=== PATIENT | female | born 1975 | race Hispanic/Latino ===

== ENCOUNTER 2018-09-07 08:11 | Emergency (ER) | payer SELFPAY ==
[~2018-09-07] VITALS: Ht 139.7 cm; Wt 53.4 kg
[~2018-09-07 08:11] MED LIST: BAYER LOW81 MG OR; HUMULIN 70/30 SC; KEFLEX250 MG PO; LISINOPRIL10 MG PO; METFORMIN500 MG PO; PREDNISONE10 MG PO; PROAIR HFA IN; TESSALON PERLE100 MG PO; ZITHROMAX250 MG PO
[2018-09-07] MEDS ORDERED: PROVENTIL108 MCG/AC IN (09:09)
[2018-09-07] MEDS ORDERED: ZITHROMAX250 MG PO (09:09)
[2018-09-07 09:24] VITALS: BP 129/80
== END 2018-09-07 09:28 | disposition home or self-care (01) | DRG 203 ==
LOC: ED 08:11
DX: J40 Bronchitis, not specified as acute or chronic (principal); E11.9 Type 2 diabetes mellitus without complications

== ENCOUNTER 2019-08-01 13:13 | Emergency (ER) | payer SELFPAY ==
[~2019-08-01] VITALS: Ht 139.7 cm; Wt 59.0 kg
[~2019-08-01 13:13] MED LIST changes: +PROVENTIL108 MCG/AC IN
[2019-08-01 15:19] VITALS: BP 121/77
== END 2019-08-01 15:19 | disposition home or self-care (01) | DRG 563 ==
LOC: ED 13:13
DX: S86.911A Strain of unspecified muscle(s) and tendon(s) at lower leg level, right leg, initial encounter (principal); E11.9 Type 2 diabetes mellitus without complications; W01.0XXA Fall on same level from slipping, tripping and stumbling without subsequent striking against object, initial encounter; Y93.E5 Activity, floor mopping and cleaning; Z79.84 Long term (current) use of oral hypoglycemic drugs

== ENCOUNTER 2019-08-18 19:25 | Observation (INO) | payer SELFPAY ==
[~2019-08-18] VITALS: Ht 139.7 cm; Wt 51.3 kg
--- NOTE | 2019-08-18 19:25 | NUR ---
Pt to room # 12 via EMS stretcher
[2019-08-18 20:00] LABS: HEMATOCRIT 31.6 % (37.0-47.0); HEMOGLOBIN 9.8 g/dl (12.0-16.0); IMMATURE GRANULOCYTES 0.3 % (0.0-5.0); MEAN CORPUSCULAR HGB 21.4 pG CALC (26.0-32.0); NEUT# 6.75 thou/uL (2.00-7.15); RED BLOOD COUNT 4.58 mill/uL (4.20-5.60); RED CELL DISTRI WIDTH 19.7 % (11.5-15.5)
[2019-08-18 20:21] LABS: ALBUMIN 4.3 g/dL (3.2-5.0); ALKALINE PHOSPHATASE 66 u/l (38-126); BILIRUBIN, TOTAL 0.2 mg/dL (0.0-1.4); BUN 10 mg/dL (7-17); BUN/CREATININE RATIO 23 (12-20 (CALC)); CHLORIDE 109 mmol/l (95-108); CREATININE 0.4 mg/dL (0.5-1.0); GFR > 60 ML/MIN (>=60 (CALC)); GFR FOR AFR.AMER. > 60 ML/MIN (>=60 (CALC)); LIPASE 266 u/l (23-300); POTASSIUM 3.5 mmol/l (3.5-5.1); SODIUM 141 mmol/l (137-146); TOTAL PROTEIN 7.9 g/dL (6.3-8.2)
[2019-08-18 20:24] LABS: ANION GAP 23 (6-22 (CALC)); CARBON DIOXIDE 13 mmol/l (22-30); SGOT/AST 24 u/l (14-36)
--- NOTE | 2019-08-18 20:25 | NUR ---
ASSISTED PT TO [facility] BUT SHE ONLY HAD SMALL BM. PT VERY WEAK DUE TO INTOXICATION.
[2019-08-18 20:47] LABS: ETHYL ALCOHOL 388 mg/dl (0-30)
--- NOTE | 2019-08-18 20:56 | NUR ---
URINE COLLECTED USING BEDPAN.
[2019-08-18 21:12] LABS: URINE BILIRUBIN - DIPSTICK NEGATIVE (NEGATIVE); URINE BLOOD DIPSTICK NEGATIVE (NEGATIVE); URINE COLOR YELLOW; URINE GLUCOSE - DIPSTICK 100 mg/dL (NEGATIVE); URINE KETONE TRACE mg/dL (NEGATIVE); URINE LEUK ESTERASE NEGATIVE (NEGATIVE); URINE NITRITE - DIPSTICK NEGATIVE (Negative); URINE PROTEIN - DIPSTICK NEGATIVE (NEG-TRACE); URINE SPECIFIC GRAVITY 1.015; URINE UROBILINOGEN - DIPSTICK 0.2 E.U./dL (0.2)
[2019-08-18 21:17] LABS: BARBITURATES NEGATIVE (NEGATIVE); COCAINE NEGATIVE (NEGATIVE); METHADONE NEGATIVE (NEGATIVE); OXCYCODONE NEGATIVE (NEGATIVE); TETRAHYDROCANNABIONOL NEGATIVE (NEGATIVE); TRICYLIC ANTIDEPRESSANTS NEGATIVE (NEGATIVE)
--- NOTE | 2019-08-18 21:20 | NUR ---
PT HAVING COUGHING EPISODE. SAT DROPPED TO 90 BUT BOUNCED RIGHT BACK TO 97-98.
--- NOTE | 2019-08-18 21:57 | NUR ---
MEDICATED WITH ROBITUSSIN DM FOR COUGH.
--- NOTE | 2019-08-18 22:12 | NUR ---
EKG DONE, PT TO BE ADMITTED DUE TO ETOH INTOXICATION.. WAITING ON ORDERS
--- NOTE | 2019-08-18 22:32 | NUR ---
REPORT GIVEN TO [facility]. REQUESTED NEXT BANANA BAG BE PULLED SINCE IT IS CARRIED IN ER. WILL DO.
--- NOTE | 2019-08-18 22:43 | NUR ---
Admission Note Report Given to: [facility] Transported by: Wheelchair X Stretcher Transported with: X Nurse Transporter X Patent IV O2 X Hand Spring Former
[2019-08-18 22:58] VITALS: BP 133/76
--- NOTE | 2019-08-19 02:17 | NUR ---
PATIENT RESTING IN BED AT THIS TIME WITH EYES CLOSED-RESP ARE EVEN AND UNLABORED. APPEARS SLEEPING AT THIS TIME. S/O SLEEPINGON COUCH AT BEDSIDE. TELE MONITOR IN PLACE. BANANA BAG INFUSING AT 100CC/HR VIA LEFT HAND SITE. SITE REMAINS HELTHY AT THIS TIME. CALL LIGHT IN REACH. WILL CONT TO MONITOR.
[2019-08-19 03:35] VITALS: BP 120/68
--- NOTE | 2019-08-19 04:44 | NUR ---
PATIENT CONT TO APPEARS SLEEPING WITH EYES CLOSED-RESP ARE EVEN AND UNLABORED. S/O APPEARS SLEEPING AT BEDSIDE. TELE MONITOR IN PLACE. IVF PATENT AND INFUSING VIA LEFT HAND AT 100CC/HR. CALL LIGHT IN REACH. WILL CONT TO MONITOR.
[2019-08-19 05:34] LABS: ANION GAP 17 (6-22 (CALC)); BUN 8 mg/dL (7-17); BUN/CREATININE RATIO 21 (12-20 (CALC)); CHLORIDE 113 mmol/l (95-108); CREATININE 0.4 mg/dL (0.5-1.0); GFR > 60 ML/MIN (>=60 (CALC)); GFR FOR AFR.AMER. > 60 ML/MIN (>=60 (CALC)); MAGNESIUM 1.3 mg/dL (1.6-2.3); POTASSIUM 3.5 mmol/l (3.5-5.1); SODIUM 142 mmol/l (137-146)
[2019-08-19 05:38] LABS: CARBON DIOXIDE 16 mmol/l (22-30)
[2019-08-19 07:45] VITALS: BP 142/72
--- NOTE | 2019-08-19 07:45 | NUR ---
ASSESSMENT IS COMPLETED: IV SITE IS FREE FROM REDNESS OR EDEMA. HR IS REG, PULSES ARE STRONG X4, ABD IS SOFT WITH ACTIVE BS. BREATH SOUNDS ARE CLEAR,BILATERALLY, NO C/O SOB. HAD [facility] CONTRERASA COME IN AND INTERPRET PT VERBALIZED UNDERSTANDING. TELE MONITOR IN PLACE.
[2019-08-19 10:38] VITALS: BP 145/79
--- NOTE | 2019-08-19 12:05 | NUR ---
PT HAD BEEN IN THE SHOWER. NO DISTRESS NOTED. IV SITE IS FREE FROM REDNESS OR EDEMA.
--- NOTE | 2019-08-19 15:32 | NUR ---
ASSUMED CARE. NO APPARENT DISTRESS NOTED. CEE RIVERA TO TRANSLATE, PT DENIES ANY NEEDS.
[2019-08-19] MEDS ORDERED: IRON325 M1 PO (15:41)
[2019-08-19 15:50] VITALS: BP 153/84
--- NOTE | 2019-08-19 17:08 | NUR ---
IV site discontinued, cath intact. No edema , no redness, voices no discomfort.
--- NOTE | 2019-08-19 17:08 | NUR ---
Discharge instructions given. Patient verbalizes understanding of same. Discharged in stable condition via Wheelchair to Home with family. All belongings sent with pt.
== END 2019-08-19 17:17 | disposition home or self-care (01) | DRG 896 ==
LOC: ED 19:25 → ED-I 21:55 → ED 22:14 → MS2 22:15
PROVIDERS: Family Medicine; ADMIT Internal Medicine; ATTEND Internal Medicine
DX: F10.129 Alcohol abuse with intoxication, unspecified (principal); G92 Toxic encephalopathy; E11.9 Type 2 diabetes mellitus without complications; Z79.84 Long term (current) use of oral hypoglycemic drugs
CPT/HCPCS: J1650; J3475

== ENCOUNTER 2020-10-27 22:34 | Emergency (ER) | payer SELFPAY ==
[~2020-10-27] VITALS: Ht 144.8 cm; Wt 50.0 kg
[~2020-10-27 22:34] MED LIST changes: +IRON325 M1 PO
[2020-10-28 00:38] LABS: IMMATURE GRANULOCYTES 0.3 % (0.0-5.0); MEAN CORPUSCULAR HGB 26.6 pG CALC (26.0-32.0); NEUT# 5.97 thou/uL (2.00-7.15); RED BLOOD COUNT 4.62 mill/uL (4.20-5.60); RED CELL DISTRI WIDTH 17.1 % (11.5-15.5)
[2020-10-28 00:40] LABS: HEMATOCRIT 38.4 % (37.0-47.0); HEMOGLOBIN 12.3 g/dl (12.0-16.0); MEAN CELL VOLUME 83.1 fL CALC (80.0-100.0)
[2020-10-28 00:56] LABS: ALBUMIN 4.7 g/dL (3.2-5.0); ALKALINE PHOSPHATASE 52 u/l (38-126); BUN 11 mg/dL (7-17); BUN/CREATININE RATIO 14 (12-20 (CALC)); CHLORIDE 100 mmol/l (95-108); CREATININE 0.8 mg/dL (0.5-1.0); GFR > 60 ML/MIN (>=60 (CALC)); GFR FOR AFR.AMER. > 60 ML/MIN (>=60 (CALC)); POTASSIUM 3.6 mmol/l (3.5-5.1); SGOT/AST 30 u/l (14-36); SODIUM 136 mmol/l (137-146); TOTAL PROTEIN 8.1 g/dL (6.3-8.2)
[2020-10-28 00:58] LABS: ANION GAP 15 (6-22 (CALC)); BILIRUBIN, TOTAL 0.5 mg/dL (0.0-1.4); CARBON DIOXIDE 25 mmol/l (22-30)
[2020-10-28] MEDS ORDERED: TESSALON PERLE100 MG PO ×2 (02:18→02:46)
[2020-10-28] MEDS ORDERED: ZITHROMAX250 MG PO ×2 (02:18→02:46)
[2020-10-28 02:35] VITALS: BP 132/64
[2020-10-28] MEDS ORDERED: UNKNOWN DIABETIC MED (02:46)
== END 2020-10-28 02:35 | disposition home or self-care (01) | DRG 203 ==
LOC: ED 22:34
DX: J20.9 Acute bronchitis, unspecified (principal); E11.65 Type 2 diabetes mellitus with hyperglycemia; Z79.84 Long term (current) use of oral hypoglycemic drugs; Z20.822 Contact with and (suspected) exposure to COVID-19

== ENCOUNTER 2022-07-22 19:13 | Emergency (ER) | payer OTHER ==
[~2022-07-22] VITALS: Ht 144.8 cm; Wt 50.0 kg
[~2022-07-22 19:13] MED LIST changes: +UNKNOWN DIABETIC MED
[2022-07-22 20:00] LABS: HEMATOCRIT 39.5 % (37.0-47.0); HEMOGLOBIN 13.2 g/dl (12.0-16.0); IMMATURE GRANULOCYTES 0.2 % (0.0-5.0); MEAN CELL VOLUME 86.8 fL CALC (80.0-100.0); MEAN CORPUSCULAR HGB CONC 33.4 g/dL CAL (32.0-36.0); NEUT# 4.38 thou/uL (2.00-7.15); RED BLOOD COUNT 4.55 mill/uL (4.20-5.60)
[2022-07-22 21:23] LABS: ALBUMIN 4.8 g/dL (3.2-5.0); ALKALINE PHOSPHATASE 57 u/l (38-126); BUN 8 mg/dL (7-17); BUN/CREATININE RATIO 12 (12-20 (CALC)); CHLORIDE 107 mmol/l (95-108); CREATININE 0.7 mg/dL (0.5-1.0); GFR FOR AFR.AMER. > 60 ML/MIN (>=60 (CALC)); GFR OTHER RACES > 60 ML/MIN (>=60 (CALC)); POTASSIUM 3.6 mmol/l (3.5-5.1); SGOT/AST 34 u/l (14-36); SODIUM 141 mmol/l (137-146); TOTAL PROTEIN 8.2 g/dL (6.3-8.2)
[2022-07-22 21:31] LABS: ANION GAP 24 (6-22 (CALC)); BILIRUBIN, TOTAL 0.2 mg/dL (0.0-1.4); CARBON DIOXIDE 14 mmol/l (22-30)
[2022-07-23] MEDS ORDERED: NAPROXEN500 MG PO (06:50)
[2022-07-23 07:13] VITALS: BP 109/80
== END 2022-07-23 07:08 | disposition home or self-care (01) | DRG 923 ==
LOC: ED 19:13
PROVIDERS: Emergency Medicine
DX: Z04.1 Encounter for examination and observation following transport accident (principal); F10.129 Alcohol abuse with intoxication, unspecified; Y90.8 Blood alcohol level of 240 mg/100 ml or more

== ENCOUNTER 2022-09-28 02:54 | Emergency (ER) | payer SELFPAY ==
[2022-09-28] VITALS (8 sets, daily range): BP systolic 116–155; BP diastolic 72–82
[~2022-09-28] VITALS: Ht 144.8 cm; Wt 61.0 kg
[~2022-09-28 02:54] MED LIST changes: +NAPROXEN500 MG PO
[2022-09-28 04:37] LABS: URINE BILIRUBIN - DIPSTICK NEGATIVE (NEGATIVE); URINE BLOOD DIPSTICK LARGE (NEGATIVE); URINE COLOR YELLOW; URINE GLUCOSE - DIPSTICK NEGATIVE (NEGATIVE); URINE KETONE NEGATIVE (NEGATIVE); URINE LEUK ESTERASE NEGATIVE (NEGATIVE); URINE PROTEIN - DIPSTICK NEGATIVE (NEG-TRACE); URINE SPECIFIC GRAVITY <=1.005; URINE UROBILINOGEN - DIPSTICK 0.2 E.U./dL (0.2)
[2022-09-28 04:38] LABS: BASO% 0.3 % (0-3); EOS% 0.7 % (0-8); HEMATOCRIT 38.1 % (37.0-47.0); HEMOGLOBIN 12.5 g/dl (12.0-16.0); IMMATURE GRANULOCYTES 0.3 % (0.0-5.0); LYMPH% 21.7 % (15-41); MEAN CELL VOLUME 86.6 fL CALC (80.0-100.0); MEAN CORPUSCULAR HGB 28.4 pG CALC (26.0-32.0); MEAN CORPUSCULAR HGB CONC 32.8 g/dL CAL (32.0-36.0); MONO% 7.3 % (2-13); NEUT# 4.79 thou/uL (2.00-7.15); NEUT% 69.7 % (42-76); RED BLOOD COUNT 4.4 mill/uL (4.20-5.60); RED CELL DISTRI WIDTH 13.4 % (11.5-15.5)
[2022-09-28 04:44] LABS: URINE NITRITE - DIPSTICK NEGATIVE (Negative)
[2022-09-28 04:46] LABS: URINE SQUAMOUS EPITHELIAL CELL FEW EPI/hpf (0-FEW)
[2022-09-28 04:51] LABS: ALBUMIN 4.5 g/dL (3.2-5.0); ALKALINE PHOSPHATASE 76 u/l (38-126); BUN 10 mg/dL (7-17); BUN/CREATININE RATIO 17 (12-20 (CALC)); CHLORIDE 103 mmol/l (95-108); CREATININE 0.6 mg/dL (0.5-1.0); GFR FOR AFR.AMER. > 60 ML/MIN (>=60 (CALC)); GFR OTHER RACES > 60 ML/MIN (>=60 (CALC)); POTASSIUM 3.4 mmol/l (3.5-5.1); SGOT/AST 39 u/l (14-36); SODIUM 136 mmol/l (137-146); TOTAL PROTEIN 7.6 g/dL (6.3-8.2)
[2022-09-28 04:54] LABS: ANION GAP 11 (6-22 (CALC)); BILIRUBIN, TOTAL 0.3 mg/dL (0.02-1.3); CARBON DIOXIDE 25 mmol/l (22-30)
== END 2022-09-28 06:15 | disposition home or self-care (01) | DRG 880 ==
LOC: ED 02:54
PROVIDERS: Emergency Medicine
DX: F41.9 Anxiety disorder, unspecified (principal); E11.9 Type 2 diabetes mellitus without complications; Z79.84 Long term (current) use of oral hypoglycemic drugs; I10 Essential (primary) hypertension; Z20.822 Contact with and (suspected) exposure to COVID-19

== ENCOUNTER 2022-10-16 14:21 | Emergency (ER) | payer SELFPAY ==
[2022-10-16] VITALS (8 sets, daily range): BP systolic 80–167; BP diastolic 63–91
[~2022-10-16] VITALS: Ht 144.8 cm; Wt 55.0 kg
[2022-10-16] MEDS ORDERED: TAM75CAP PO (15:40)
[2022-10-16] MEDS ORDERED: METFORMIN500 M2 PO (15:54)
== END 2022-10-16 17:14 | disposition home or self-care (01) | DRG 204 ==
LOC: ED 14:21
DX: R05.9 Cough, unspecified (principal)

== ENCOUNTER 2024-08-22 17:39 | Emergency (ER) | payer SELFPAY ==
[~2024-08-22] VITALS: Ht 144.8 cm; Wt 52.2 kg
[~2024-08-22 17:39] MED LIST changes: +METFORMIN500 M2 PO; +TAM75CAP PO
[2024-08-22 20:41] VITALS: BP 164/85
[2024-08-22] MEDS ORDERED: DEXAMETHASONE 2 MG/TAB TAB PO ONE (21:05)
[2024-08-22] MEDS ORDERED: AZITHROMYCIN 250 MG/TAB PO ONE (21:05)
[2024-08-22] MEDS ORDERED: BENZONATATE 200 MG/CAP PO ONE ×2 (21:05→22:55)
[2024-08-22] MEDS ORDERED: IPRATROPIUM-Albuterol 0.5MG-2.5MG/3 ML NEB ONE (21:35)
[2024-08-22] MEDS ORDERED: DECADRON4 MG PO (22:53)
[2024-08-22] MEDS ORDERED: BENZONATATE200 MG PO (22:53)
== END 2024-08-23 00:24 | disposition home or self-care (01) | DRG 179 ==
LOC: ED 17:39
DX: U07.1 COVID-19 (principal); R05.9 Cough, unspecified; R06.02 Shortness of breath; J02.9 Acute pharyngitis, unspecified; E11.9 Type 2 diabetes mellitus without complications; F10.10 Alcohol abuse, uncomplicated; Z79.84 Long term (current) use of oral hypoglycemic drugs